=== PATIENT | male | born 1995 | race Caucasian/White ===

== ENCOUNTER 2018-10-27 09:25 | Emergency (ER) | payer BC ==
[~2018-10-27 09:25] MED LIST: LORA-733 PO; PRED20TA6 PO
[2018-10-27] MEDS ORDERED: FEXO1TAB63 PO (09:31)
--- NOTE | 2018-10-27 09:40 | ER Report ---
History and Physical Time Seen By MD: 09:40 Hx. of Stated Complaint: CP X 1.5 DAYS, FATHER HAS MARFAN'S SYNDROME HPI/ROS CHIEF COMPLAINT: Cough, shortness breath HISTORY OF PRESENT ILLNESS: Patient is a 23-year-old male previously healthy here with complaints of cough, shortness breath, left-sided chest pain with radiation to the shoulder. Patient reports increasing dyspnea on exertion today prompting evaluation. Patient is afebrile at time of evaluation, mildly tachycardic in sinus rhythm, maintaining oxygen saturations greater than 94% on room air. Denies prior history of smoking, lung disease. REVIEW OF SYSTEMS: Constitutional: No fever, no chills. Eyes: No discharge. ENT: No sore throat. Cardiovascular: + Left sided chest pain, no palpitations. Respiratory: + cough, + shortness of breath. Gastrointestinal: No abdominal pain, no vomiting. Genitourinary: No hematuria. Musculoskeletal: No back pain. Skin: No rashes. Neurological: No headache. Allergies: Coded Allergies: ampicillin (Verified Allergy, Intermediate, 10/27/18) Home Meds Active Scripts Azithromycin (Z-PACK) 250 Mg Tablet, 0 PO QDAY, #6 DOSE-PACK Prov:BRISA PORTILLO DO 10/27/18 Ondansetron 4 Mg Odt (ONDANSETRON 4 MG ODT) 4 Mg Tab.rapdis, 4 MG PO Q4-6H PRN for NAUSEA, #20 TAB Prov:BRISA PORTILLO DO 10/27/18 Tramadol Hcl (TRAMADOL HCL) 50 Mg Tablet, 50 MG PO Q6H PRN for PAIN, #12 TAB 0 Refills Prov:BRISA PORTILLO DO 10/27/18 Reported Medications Fexofenadine Hcl/Pseudoephedr (GABO-D 24 HOUR TABLET) 1 Each Tabsr, 1 TAB PO PRN 10/27/18 Discontinued Reported Medications Loratadine (ALAVERT) 10 Mg Tab.rapdis, 10 MG PO QDAY 02/19/17 Discontinued Scripts Prednisone (PREDNISONE) 20 Mg Tablet, 60 MG PO QDAY, #6 TAB 0 Refills Prov:MOIZ WALTON MD 02/19/17 Hx Substance Use Disorder: No Hx Alcohol Use: No Constitutional Vital Sign - Last 24 Hours 10/27/18 10/27/18 10/27/1810/27/19 09:28 09:30 09:45 10:15 Temp 98.4 Pulse 112 106 70 79 Resp 16 24 12 B/P (MAP) 146/84 Pulse Ox 96 97 96 85 O2 Delivery Room Air 10/27/18 10/27/18 10/27/18 10/27/18 10:18 10:30 10:45 11:00 Pulse 73 74 Resp 12 14 B/P (MAP) 127/71 (89) 114/70 (85) 92/56 (68) Pulse Ox 89 90 10/27/18 10/27/18 11:15 11:30 Pulse 68 72 Resp 14 12 B/P (MAP) 102/63 (76) Pulse Ox 94 91 Physical Exam General Appearance: The patient is alert, has no immediate need for airway protection and no signs of toxicity. Uncomfortable appearing Eyes: Pupils equal and round no pallor or injection. ENT, Mouth: Mucous membranes are moist. Respiratory: There are no retractions, lungs are clear to auscultation. Cardiovascular: Mild tachycardia Gastrointestinal: Abdomen is soft and non tender, no masses, bowel sounds normal. Neurological: No focal neurological deficits, alert and oriented Skin: Warm and dry, no rashes. Musculoskeletal: Neck is supple non tender. Extremities are nontender, nonswollen and have full range of motion. DIFFERENTIAL DIAGNOSIS: After history and physical exam differential diagnosis was considered for fever in adults including but not limited to pneumonia, urinary tract infection, viral syndrome, and influenza. Medical Decision Making Data Points Result Diagram: 10/27/18 0910/27/18 0938 Laboratory Hematology Test 10/27/18 09:38 10/27/18 10:06 Red Blood Count 5.25 M/uL (4.00-5.60) Mean Corpuscular Volume 90.6 fL (80.0-96.0) Mean Corpuscular Hemoglobin 30.8 pg (26.0-33.0) Mean Corpuscular Hemoglobin Concent 34.0 g/dL (32.0-36.0) Red Cell Distribution Width 12.2 % (11.5-14.5) Mean Platelet Volume 9.6 fL (7.2-11.1) Neutrophils (%) (Auto) 71.6 % (39.4-72.5) Lymphocytes (%) (Auto) 17.5 % (17.6-49.6) Monocytes (%) (Auto) 9.8 % (4.1-12.4) Eosinophils (%) (Auto) 0.5 % (0.4-6.7) Basophils (%) (Auto) 0.6 % (0.3-1.4) Nucleated RBC Relative Count (auto) 0.0 /100WBC Neutrophils # (Auto) 14.0 K/uL (2.0-7.4) Lymphocytes # (Auto) 3.4 K/uL (1.3-3.6) Monocytes # (Auto) 1.9 K/uL (0.3-1.0) Eosinophils # (Auto) 0.1 K/uL (0.0-0.5) Basophils # (Auto) 0.1 K/uL (0.0-0.1) Nucleated RBC Absolute Count (auto) 0.00 K/uL D-Dimer Quantitative (PE/DVT) 0.44 ug/ml (0-0.50) Sodium Level 140 mmol/L (137-145) Potassium Level 3.6 mmol/L (3.5-5.0) Chloride Level 101 mmol/L (98-107) Carbon Dioxide Level 26 mmol/L (22-30) Blood Urea Nitrogen 9 mg/dl (9-21) Creatinine 0.90 mg/dl (0.66-1.25) Glomerular Filtration Rate Calc > 60.0 Random Glucose 112 mg/dl (75-110) Calcium Level 10.1 mg/dl (8.4-10.2) Total Bilirubin 1.5 mg/dl (0.2-1.3) Aspartate Amino Transf (AST/SGOT) 25 U/L (0-35) Alanine Aminotransferase (ALT/SGPT) 25 U/L (0-56) Alkaline Phosphatase 76 U/L (0-126) Troponin I < 0.012 ng/ml Total Protein 8.7 g/dl (6.3-8.2) Albumin 5.1 g/dl (3.5-5.0) Influenza Virus Type A (PCR) Negative (NEGATIVE) Influenza Virus Type B (PCR) Negative (NEGATIVE) Chemistry Test 10/27/18 09:38 10/27/18 10:06 White Blood Count 19.5 k/uL (4.5-11.0) Red Blood Count 5.25 M/uL (4.00-5.60) Hemoglobin 16.2 g/dL (14.0-18.0) Hematocrit 47.6 % (42.0-52.0) Mean Corpuscular Volume 90.6 fL (80.0-96.0) Mean Corpuscular Hemoglobin 30.8 pg (26.0-33.0) Mean Corpuscular Hemoglobin Concent 34.0 g/dL (32.0-36.0) Red Cell Distribution Width 12.2 % (11.5-14.5) Platelet Count 233 K/uL (150-450) Mean Platelet Volume 9.6 fL (7.2-11.1) Neutrophils (%) (Auto) 71.6 % (39.4-72.5) Lymphocytes (%) (Auto) 17.5 % (17.6-49.6) Monocytes (%) (Auto) 9.8 % (4.1-12.4) Eosinophils (%) (Auto) 0.5 % (0.4-6.7) Basophils (%) (Auto) 0.6 % (0.3-1.4) Nucleated RBC Relative Count (auto) 0.0 /100WBC Neutrophils # (Auto) 14.0 K/uL (2.0-7.4) Lymphocytes # (Auto) 3.4 K/uL (1.3-3.6) Monocytes # (Auto) 1.9 K/uL (0.3-1.0) Eosinophils # (Auto) 0.1 K/uL (0.0-0.5) Basophils # (Auto) 0.1 K/uL (0.0-0.1) Nucleated RBC Absolute Count (auto) 0.00 K/uL D-Dimer Quantitative (PE/DVT) 0.44 ug/ml (0-0.50) Glomerular Filtration Rate Calc > 60.0 Calcium Level 10.1 mg/dl (8.4-10.2) Total Bilirubin 1.5 mg/dl (0.2-1.3) Aspartate Amino Transf (AST/SGOT) 25 U/L (0-35) Alanine Aminotransferase (ALT/SGPT) 25 U/L (0-56) Alkaline Phosphatase 76 U/L (0-126) Troponin I < 0.012 ng/ml Total Protein 8.7 g/dl (6.3-8.2) Albumin 5.1 g/dl (3.5-5.0) Influenza Virus Type A (PCR) Negative (NEGATIVE) Influenza Virus Type B (PCR) Negative (NEGATIVE) Coagulation Test 10/27/18 09:38 D-Dimer Quantitative (PE/DVT) 0.44 ug/ml EKG/Imaging EKG Interpretation PATIENT NAME: KADE ORO : [id number] MR: [id number] V: [id number] EXAM DATE: ORDERING PHYSICIAN: BRISA PORTILLO TECHNOLOGIST: Test Reason : Blood Pressure : / mmHG Vent. Rate : 082 BPM Atrial Rate : 082 BPM P-R Int : 156 ms QRS Dur : 100 ms QT Int : 350 ms P-R-T Axes : 054 058 049 degrees QTc Int : 408 ms Normal sinus rhythm with sinus arrhythmia Normal ECG No previous ECGs available Confirmed by ADRIÁN BOWIE ([id number]) on 10/27/2018 11:09:15 AM Referred By: Confirmed By:ADRIÁN BOWIE Imaging PATIENT NAME: Kade Oro : 1995 MR: [id number] V: [id number] EXAM DATE: [id number] ORDERING PHYSICIAN: BRISA PORTILLO TECHNOLOGIST: Location: [facility] Patient: Kade Oro : 1995 Visit/Account:[id number] Date of Sevice: 10/27/2018 Technique: CHEST PA LAT HISTORY: cp COMPARISON: None available Findings: Linear left basilar opacities are noted. No pleural effusion or pneumothorax. The cardiomediastinal silhouette is unremarkable. Impression: 1. Linear left basilar opacities. These findings likely represent atelectasis. Airspace process such as pneumonia is felt less likely. ED Course/Re-evaluation ED Course Patient is a 23-year-old male here with complaints of cough, increasing javier rtness breath in spite of maintaining oxygen saturations greater than 96% on room air, subjective fevers. Patient was found to be mildly tachycardic at time of evaluation. Patient was given IV fluids, Toradol, Zofran for symptom management. Chest x-ray showed a linear infiltrate on the left lung which is where the patient was having a majority of his chest discomfort. Labs were remarkable for white blood cell count of 19,000 and however troponin and d-dimer were negative. EKG showed normal sinus rhythm with no ischemic changes. Due to the patient's symptoms, cough, leukocytosis, he was started on a Z-[place] and advised to closely follow up with his primary care provider. Patient was hemodynamically stable at time of discharge. Return precautions were provided. Decision to Disposition Date: Oct 27, 2018 Decision to Disposition Time: 11:33 Depart Departure Latest Vital Signs Vital Signs Date Time Temp Pulse Resp B/P (MAP) Pulse Ox O2 Delivery O2 Flow Rate FiO2 10/27/18 11:30 72 12 102/63 (76) 91 10/27/18 09:28 98.4 Room Air Impression: Primary Impression: Pneumonia Condition: Improved Disposition: HOME OR SELF-CARE New Scripts Azithromycin (Z-PACK) 250 Mg Tablet 0 PO QDAY, #6 DOSE-PACK Prov: BRISA PORTILLO DO 10/27/18 Ondansetron 4 Mg Odt (ONDANSETRON 4 MG ODT) 4 Mg Tab.rapdis 4 MG PO Q4-6H PRN for NAUSEA, #20 TAB Prov: BRISA PORTILLO DO 10/27/18 Tramadol Hcl (TRAMADOL HCL) 50 Mg Tablet 50 MG PO Q6H PRN for PAIN, #12 TAB 0 Refills Prov: BRISA PORTILLO DO 10/27/18 Departure Forms: ER Transition Record, Medications Reconciliation, Off Work/School Form, School or Work Release?: School Number of days to be released: 2 Patient Portal Information Patient Instructions: Bacterial Pneumonia (DC) Additional Instructions: You were being treated for suspected pneumonia. Please take azithromycin Z-[place] as prescribed. You may take ibuprofen or naproxen as needed for pain control, you may take 1 tablet of tramadol every 6-8 hours as needed for breakthrough pain control, Zofran 1 tablet every 4-6 hours as needed for nausea and vomiting. Please follow-up in the next 24-48 hours with your primary care provider, continue to hydrate aggressively. Please return promptly if you develop worsening cough, increasing shortness breath, persistent fevers, nausea or vomiting. BRISA PORTILLO DO Oct 27, 2018 09:40
[2018-10-27] MEDS ORDERED: NS(*) 0.9% 1000 ML BAG 1,000 ML IV ONE (09:41)
[2018-10-27] MEDS ORDERED: ASPIRIN 81 MG CHEW CHEW ONE (09:45)
[2018-10-27] MEDS ORDERED: ONDANSETRON 4 MG/2 ML VIAL IVP ONE (09:50)
[2018-10-27 09:51] LABS: PLATELET COUNT, AUTOMATED 233 K/uL (150-450)
[2018-10-27] MEDS ORDERED: KETOROLAC 30 MG/ML VIAL IVP ONE (10:00)
--- NOTE | 2018-10-27 10:12 | EKG ---
FACILITY: [facility] PATIENT NAME: TYLER CAMPOS : [id number] MR: [id number] V: [id number] EXAM DATE: ORDERING PHYSICIAN: BRISA PORTILLO TECHNOLOGIST: Test Reason : Blood Pressure : / mmHG Vent. Rate : 082 BPM Atrial Rate : 082 BPM P-R Int : 156 ms QRS Dur : 100 ms QT Int : 350 ms P-R-T Axes : 054 058 049 degrees QTc Int : 408 ms Normal sinus rhythm with sinus arrhythmia Normal ECG No previous ECGs available Confirmed by ADRIÁN BOWIE ([id number]) on 10/27/2018 11:09:15 AM Referred By: Confirmed By:ADRIÁN BOWIE
--- NOTE | 2018-10-27 10:21 | RADIOLOGY IMAGING REPORT ---
FACILITY: [facility] PATIENT NAME: Kade Oro : 1995 MR: [id number] V: [id number] EXAM DATE: [id number] ORDERING PHYSICIAN: BRISA PORTILLO TECHNOLOGIST: Location: [facility] Patient: Kade Oro : 1995 Visit/Account:[id number] Date of Sevice: 10/27/2018 Technique: CHEST PA LAT HISTORY: cp COMPARISON: None available Findings: Linear left basilar opacities are noted. No pleural effusion or pneumothorax. The cardiom ediastinal silhouette is unremarkable. Impression: 1. Linear left basilar opacities. These findings likely represent atelectasis. Airspace process suc h as pneumonia is felt less likely. Report Dictated By: Naif Simpson DO at 10/27/2018 10:17 AM Report E-Signed By: Naif Simpson DO at 10/27/2018 10:18 AM WSN:[id number]
[2018-10-27 11:30] VITALS: BP 102/63
[2018-10-27] MEDS ORDERED: ONDA4TAB9 PO (11:36)
[2018-10-27] MEDS ORDERED: TRAM-420 PO (11:36)
[2018-10-27] MEDS ORDERED: AZIT-17 PO (11:40)
== END 2018-10-27 11:49 | disposition home or self-care (01) ==
LOC: ER 09:49
DX: J18.9 Pneumonia, unspecified organism (principal)
CPT/HCPCS: 71046; 84484; 85025; 85379; 87502; 93005; 96361; 96374; 96375; 99284; J1885; J2405; J7030; 82040; 82247; 82310; 82374; 82435; 82565; 82947; 84075; 84132; 84155; 84295; 84450; 84460; 84520

== ENCOUNTER 2018-10-30 18:08 | Emergency (ER) | payer BC ==
[~2018-10-30 18:08] MED LIST changes: +AZIT-17 PO; +FEXO1TAB63 PO; +ONDA4TAB9 PO; +TRAM-420 PO
--- NOTE | 2018-10-30 18:17 | ER Report ---
History and Physical Time Seen By MD: 18:17 Hx. of Stated Complaint: chest pain starting saturday morning. was seen in the er, sent home with a zpack. states pain has gotten worse, spread to his back HPI/ROS CHIEF COMPLAINT: Chest pain HISTORY OF PRESENT ILLNESS: 23-year-old male patient presents to emergency room with complaint of chest pain. Patient states that the pain is worse in the left side of the chest. Patient states that he has worsening pain when he lays down. He states he came to the emergency room on October 27 and was diagnosed with a pneumonia. Patient states he's been taking the antibiotics as directed with no improvement. Patient states concerned that he may received an inaccurate diagnosis. He denies having any fevers, chills, nausea, vomiting or diarrhea. Patient states he's been staying at home most the time because he is having a hard time breathing. Patient states the pain has worsened. REVIEW OF SYSTEMS: Respiratory: No cough, no dyspnea. Cardiovascular: As noted above Gastrointestinal: No vomiting, no abdominal pain. Musculoskeletal: No back pain. Allergies: Coded Allergies: ampicillin (Verified Allergy, Intermediate, 10/27/18) Home Meds Active Scripts Cefdinir 300 Mg Cap (OMNICEF 300 MG CAP (OR EQUIV)) 300 Mg Cap, 300 MG PO BID, #14 CAP Prov:PAVAN ROBLES 10/30/18 Azithromycin (Z-PACK) 250 Mg Tablet, 0 PO QDAY, #6 DOSE-PACK Prov:BRISA PORTILLO DO 10/27/18 Ondansetron 4 Mg Odt (ONDANSETRON 4 MG ODT) 4 Mg Tab.rapdis, 4 MG PO Q4-6H PRN for NAUSEA, #20 TAB Prov:BRISA PORTILLO DO 10/27/18 Tramadol Hcl (TRAMADOL HCL) 50 Mg Tablet, 50 MG PO Q6H PRN for PAIN, #12 TAB 0 Refills Prov:BRISA PORTILLO DO 10/27/18 Reported Medications Fexofenadine Hcl/Pseudoephedr (GABO-D 24 HOUR TABLET) 1 Each Tabsr, 1 TAB PO PRN 10/27/18 Discontinued Reported Medications Loratadine (ALAVERT) 10 Mg Tab.rapdis, 10 MG PO QDAY 02/19/17 Discontinued Scripts Prednisone (PREDNISONE) 20 Mg Tablet, 60 MG PO QDAY, #6 TAB 0 Refills Prov:ISABELLEMOIZ Perez MD 02/19/17 Past Medical/Surgical History Patient has a past medical history of seasonal allergies. Patient denies any surgical history. Reviewed Nurses Notes: Yes Hx Substance Use Disorder: No Hx Alcohol Use: No Constitutional Vital Sign - Last 24 Hours 10/30/18 10/30/18 10/30/18 10/30/18 18:13 18:14 18:30 18:38 Temp 98.1 Pulse 91 92 Resp 16 B/P (MAP) 127/70 127/78 (94) 116/60 (78) Pulse Ox 93 93 O2 Delivery Room Air 10/30/18 10/30/18 10/30/18 10/30/18 19:00 19:05 19:34 19:35 Pulse ??? 87 B/P (MAP) 107/69 (82) 113/57 (75) Pulse Ox 90 10/30/18 10/30/18 10/30/18 10/30/18 20:00 20:05 20:30 20:35 Pulse 87 89 B/P (MAP) 114/68 (83) 102/67 (79) Pulse Ox 90 90 Physical Exam General Appearance: The patient is alert, has no immediate need for airway protection and no current signs of toxicity. Respiratory: Chest is non tender, lungs are diminished in the right lung and clear to auscultation in the left lung. Cardiac: regular rate and rhythm Gastrointestinal: Abdomen is soft and non tender, no masses, bowel sounds normal. Musculoskeletal: Neck: Neck is supple and non tender. Extremities have full range of motion and are non tender. Skin: No rashes or lesions. DIFFERENTIAL DIAGNOSIS: After history and physical exam differential diagnosis was considered for chest pain including but not limited to myocardial ischemia, pericarditis pulmonary embolus, chest wall pain, pleural inflammation and pulmonary infectious causes. Medical Decision Making Data Points Result Diagram: 10/30/18183910/30/18 184 Laboratory Hematology Test 10/30/18 18:40 Red Blood Count 4.87 M/uL (4.00-5.60) Mean Corpuscular Volume 91.1 fL (80.0-96.0) Mean Corpuscular Hemoglobin 31.0 pg (26.0-33.0) Mean Corpuscular Hemoglobin Concent 34.0 g/dL (32.0-36.0) Red Cell Distribution Width 12.4 % (11.5-14.5) Mean Platelet Volume 9.0 fL (7.2-11.1) Neutrophils (%) (Auto) 65.4 % (39.4-72.5) Lymphocytes (%) (Auto) 19.1 % (17.6-49.6) Monocytes (%) (Auto) 12.6 % (4.1-12.4) Eosinophils (%) (Auto) 1.5 % (0.4-6.7) Basophils (%) (Auto) 1.4 % (0.3-1.4) Nucleated RBC Relative Count (auto) 0.0 /100WBC Neutrophils # (Auto) 8.1 K/uL (2.0-7.4) Lymphocytes # (Auto) 2.4 K/uL (1.3-3.6) Monocytes # (Auto) 1.6 K/uL (0.3-1.0) Eosinophils # (Auto) 0.2 K/uL (0.0-0.5) Basophils # (Auto) 0.2 K/uL (0.0-0.1) Nucleated RBC Absolute Count (auto) 0.00 K/uL Sodium Level 138 mmol/L (137-145) Potassium Level 3.8 mmol/L (3.5-5.0) Chloride Level 101 mmol/L (98-107) Carbon Dioxide Level 29 mmol/L (22-30) Blood Urea Nitrogen 10 mg/dl (9-21) Creatinine 0.90 mg/dl (0.66-1.25) Glomerular Filtration Rate Calc > 60.0 Random Glucose 101 mg/dl (75-110) Calcium Level 9.5 mg/dl (8.4-10.2) Total Bilirubin 0.9 mg/dl (0.2-1.3) Aspartate Amino Transf (AST/SGOT) 32 U/L (0-35) Alanine Aminotransferase (ALT/SGPT) 41 U/L (0-56) Alkaline Phosphatase 61 U/L (0-126) Troponin I < 0.012 ng/ml Total Protein 7.8 g/dl (6.3-8.2) Albumin 4.4 g/dl (3.5-5.0) Chemistry Test 10/30/18 18:40 White Blood Count 12.5 k/uL (4.5-11.0) Red Blood Count 4.87 M/uL (4.00-5.60) Hemoglobin 15.1 g/dL (14.0-18.0) Hematocrit 44.4 % (42.0-52.0) Mean Corpuscular Volume 91.1 fL (80.0-96.0) Mean Corpuscular Hemoglobin 31.0 pg (26.0-33.0) Mean Corpuscular Hemoglobin Concent 34.0 g/dL (32.0-36.0) Red Cell Distribution Width 12.4 % (11.5-14.5) Platelet Count 267 K/uL (150-450) Mean Platelet Volume 9.0 fL (7.2-11.1) Neutrophils (%) (Auto) 65.4 % (39.4-72.5) Lymphocytes (%) (Auto) 19.1 % (17.6-49.6) Monocytes (%) (Auto) 12.6 % (4.1-12.4) Eosinophils (%) (Auto) 1.5 % (0.4-6.7) Basophils (%) (Auto) 1.4 % (0.3-1.4) Nucleated RBC Relative Count (auto) 0.0 /100WBC Neutrophils # (Auto) 8.1 K/uL (2.0-7.4) Lymphocytes # (Auto) 2.4 K/uL (1.3-3.6) Monocytes # (Auto) 1.6 K/uL (0.3-1.0) Eosinophils # (Auto) 0.2 K/uL (0.0-0.5) Basophils # (Auto) 0.2 K/uL (0.0-0.1) Nucleated RBC Absolute Count (auto) 0.00 K/uL Glomerular Filtration Rate Calc > 60.0 Calcium Level 9.5 mg/dl (8.4-10.2) Total Bilirubin 0.9 mg/dl (0.2-1.3) Aspartate Amino Transf (AST/SGOT) 32 U/L (0-35) Alanine Aminotransferase (ALT/SGPT) 41 U/L (0-56) Alkaline Phosphatase 61 U/L (0-126) Troponin I < 0.012 ng/ml Total Protein 7.8 g/dl (6.3-8.2) Albumin 4.4 g/dl (3.5-5.0) EKG/Imaging EKG Interpretation 12 lead EKG: Rhythm: normal sinus rhythm with a ventricular rate of 86 beats for minute [place]: normal QRS: normal ST segments: normal Imaging EXAMINATION: CTA of the chest with IV contrast HISTORY: Chest pain. TECHNIQUE: Pulmonary embolus protocol - Thin-slice axial imaging of the chest was performed during maximal pulmonary arterial opacification with intravenous nonionic iodinated contrast. 3D coronal slab MIPs and 2D reconstructions in the coronal and sagittal planes were performed to aid in pulmonary embolus detection. [employer] images have been stored on PACS. One of the following dose optimization techniques was utilized in the performance of this exam: Automated exposure control; adjustment of the mA and/or kV according to the patient's size; or use of an iterative reconstruction technique. Specific details can be referenced in the facility's radiology CT exam operational policy. CONTRAST: 75 mL of IV Isovue 370 COMPARISON: None available. FINDINGS: CTA CHEST: Please note that this exam is optimized for assessment of the pulmonary arteries and is not intended as a diagnostic study of the thoracic aorta, coronary arteries or venous structures. Angiographic Findings: Pulmonary arteries: Suboptimal evaluation of the segmental and subsegmental pulmonary arteries on the left secondary to motion artifact. No definite pulm onary embolism. Other vasculature: Negative. Additional non-angiographic findings: Lower neck: Negative. Lungs / Pleura: Small right and moderate left pleural effusion. Patchy consolidation in the lingula, left lower lobe, and right lower lobe. No pneumothorax. Mediastinum / Fartun: Negative. Heart / Pericardium: Negative. Lymph nodes: Negative. Musculoskeletal / Body wall: Negative. Upper abdomen: Negative. IMPRESSION: 1. Suboptimal evaluation for pulmonary embolism secondary to motion artifact on the left. 2. Patchy consolidation in the bilateral lower lobes and lingula. Small right and moderate left pleural effusion. No pleural thickening/enhancement to suggest empyema. Given the elevated white count this is probably pneumonia with parapneumonic effusion. However, the area of consolidation in the lingula does have the same appearance that a pulmonary infarction would have. We can repeat the PE protocol CTA to get a better look at the left-sided pulmonary arteries if it would tire changer aircraft. The right-sided pulmonary arteries are well seen and clear. The left main and left lobar pulmonary arteries are clear. The left segmental and subsegmental pulmonary arteries are not well seen secondary to motion. Results were called to PAVAN ROBLES at 10/30/2018 8:09 PM. Report Dictated By: David Eller MD at 10/30/2018 8:00 PM Report E-Signed By: David Eller MD at 10/30/2018 8:11 PM ED Course/Re-evaluation ED Course Patient was admitted to exam room, history and physical were obtained. Differ ential diagnoses were considered. On examination lungs are diminished in the right lung and clear in the left lung, heart is regular, abdomen soft nontender. With the patient being recently seen for chest pain as well. I opted to go ahead and repeat the CBC, CMP, troponin, EKG. Troponin was negative, EKG showed normal sinus rhythm, CBC showed an elevated white count of 12,000 with left shift. CMP was unremarkable. A CT scan of the chest was done. This showed no pulmonary emboli, however did show a pneumonia in the left lower lobe. I discussed the findings with the patient and his family. We did review the images together. With him being on azithromycin and not having significant improvement in symptoms we will go ahead and add Omnicef to the regimen. We will have him follow-up with his primary care provider on Saturday. He is to return to the emergency room if he is having any worsening of his chest pain or any shortness of breath. I discussed this with the patient who verbalized understanding and agreement with plan. Decision to Disposition Date: October 30, 2018 Decision to Disposition Time: 20:30 Depart Departure Latest Vital Signs Vital Signs Date Time Temp Pulse Resp B/P (MAP) Pulse Ox O2 Delivery O2 Flow Rate FiO2 10/30/18 20:35 89 90 10/30/18 20:30 102/67 (79) 10/30/18 18:13 98.1 16 Room Air Impression: Primary Impression: Pneumonia Condition: Stable Disposition: HOME OR SELF-CARE Referrals: SCOTT SINGH MD (PCP) New Scripts Cefdinir 300 Mg Cap (OMNICEF 300 MG CAP (OR EQUIV)) 300 Mg Cap 300 MG PO BID, #14 CAP Prov: PAVAN ROBLES SUPERVISOR PACKING 10/30/18 Patient Instructions: Community Acquired Pneumonia (ED) Additional Instructions: Increase fluid intake. Try and get up moving around to help expand the lungs. Take the medication as prescribed. Follow up with your primary care provider on Saturday to make sure that you are getting better. Return to the ER if condition worsens. Take Tylenol (2 of the 500mg tabs) or Ibuprofen (3 of the 200mg tabs) every 6 hours as needed for pain or fevers. Problem Qualifiers Primary Impression: Pneumonia Pneumonia type: due to unspecified organism Laterality: left Lung location: lower lobe of lung Qualified Codes: J18.1 - Lobar pneumonia, unspecified organism PAVAN ROBLES October 30, 2018 18:17
[2018-10-30] MEDS ORDERED: NS(*) 0.9% 1000 ML BAG 1,000 ML IV ONE (18:23)
[2018-10-30] MEDS ORDERED: ASPIRIN 81 MG CHEW PO ONE (18:25)
--- NOTE | 2018-10-30 18:33 | EKG ---
FACILITY: [facility] PATIENT NAME: TYLER CAMPOS : [id number] MR: [id number] V: [id number] EXAM DATE: ORDERING PHYSICIAN: PAVAN ROBLES TECHNOLOGIST: JESSIKA Test Reason : SOB, CHEST PAIN Blood Pressure : / mmHG Vent. Rate : 086 BPM Atrial Rate : 086 BPM P-R Int : 160 ms QRS Dur : 094 ms QT Int : 344 ms P-R-T Axes : 042 053 040 degrees QTc Int : 411 ms Sinus rhythm No acute appearing findings Similar to previous EKG Confirmed by BRYCE MEHTA ([id number]) on 10/30/2018 11:27:17 PM Referred By: PAVAN Confirmed By:BRYCE MEHTA
[2018-10-30 18:58] LABS: PLATELET COUNT, AUTOMATED 267 K/uL (150-450)
[2018-10-30] MEDS ORDERED: IOPAMIDOL 76% 150 ML INFUS BTL 150 ML ONE (19:07)
[2018-10-30] MEDS ORDERED: NS(*) 0.9% 50 ML BAG 50 ML ONE (19:07)
--- NOTE | 2018-10-30 20:14 | RADIOLOGY IMAGING REPORT ---
FACILITY: PATIENT NAME: Kade Oro : 1995 MR: [id number] V: [id number] EXAM DATE: ORDERING PHYSICIAN: PAVAN ROBLES TECHNOLOGIST: Location: [facility] - [place] Patient: Kade Oro : 1995 Visit/Account:[id number] Date of Sevice: 10/30/2018 EXAMINATION: CTA of the chest with IV contrast HISTORY: Chest pain. TECHNIQUE: Pulmonary embolus protocol - Thin-slice axial imaging of the chest was performed during maximal pulmonary arterial opacification with intravenous nonionic iodinated contrast. 3D coronal sla b MIPs and 2D reconstructions in the coronal and sagittal planes were performed to aid in pulmonary e mbolus detection. [employer] images have been stored on PACS. One of the following dose optimization techniques was utilized in the performance of this exam: Autom ated exposure control; adjustment of the mA and/or kV according to the patient's size; or use of an i terative reconstruction technique. Specific details can be referenced in the facility's radiology C T exam operational policy. CONTRAST: 75 mL of IV Isovue 370 COMPARISON: None available. FINDINGS: CTA CHEST: Please note that this exam is optimized for assessment of the pulmonary arteries and is not intended as a diagnostic study of the thoracic aorta, coronary arteries or venous structures. Angiographic Findings: Pulmonary arteries: Suboptimal evaluation of the segmental and subsegmental pulmonary arteries on the left secondary to motion artifact. No definite pulmonary embolism. Other vasculature: Negative. Additional non-angiographic findings: Lower neck: Negative. Lungs / Pleura: Small right and moderate left pleural effusion. Patchy consolidation in the lingul a, left lower lobe, and right lower lobe. No pneumothorax. Mediastinum / Fartun: Negative. Heart / Pericardium: Negative. Lymph nodes: Negative. Musculoskeletal / Body wall: Negative. Upper abdomen: Negative. IMPRESSION: 1. Suboptimal evaluation for pulmonary embolism secondary to motion artifact on the left. 2. Patchy consolidation in the bilateral lower lobes and lingula. Small right and moderate left ple ural effusion. No pleural thickening/enhancement to suggest empyema. Given the elevated white count this is probably pneumonia with parapneumonic effusion. However, the area of consolidation in the l ingula does have the same appearance that a pulmonary infarction would have. We can repeat the PE pr otocol CTA to get a better look at the left-sided pulmonary arteries if it would price changer. The right-sided pulmonary arteries are well seen and clear. The left main and left lobar pulmonary a rteries are clear. The left segmental and subsegmental pulmonary arteries are not well seen secondar y to motion. Results were called to PAVAN ROBLES at 10/30/2018 8:09 PM. Report Dictated By: David Eller MD at 10/30/2018 8:00 PM Report E-Signed By: David Eller MD at 10/30/2018 8:11 PM WSN:[id number]
[2018-10-30 20:30] VITALS: BP 102/67
[2018-10-30] MEDS ORDERED: CEFDINIR 300 MG CAP PO ONE (20:30)
[2018-10-30] MEDS ORDERED: CEF300 PO (20:32)
== END 2018-10-30 20:45 | disposition home or self-care (01) ==
LOC: ER 18:24
DX: J18.1 Lobar pneumonia, unspecified organism (principal)
CPT/HCPCS: 71275; 84484; 85025; 93005; 96360; 96361; 99284; J7030; J7050; Q9967; 82040; 82247; 82310; 82374; 82435; 82565; 82947; 84075; 84132; 84155; 84295; 84450; 84460; 84520